=== PATIENT | female | born 1970 | race Caucasian/White ===

== ENCOUNTER 2020-02-23 11:38 | Emergency (ER) | payer OTHER ==
--- NOTE | 2020-02-23 12:12 | EDM.PDOC ---
ED HPI GENERAL MEDICAL PROBLEM - General Chief Complaint: Respiratory Problem Stated Complaint: FEVER-COVID Time Seen by Provider: 02/23/20 11:55 Source of Information: Reports: Patient, Old Records, RN History Limitations: Reports: No Limitations - History of Present Illness INITIAL COMMENTS - FREE TEXT/NARRATIVE: 49 yo female was referred by the local [facility] to the ER for possible hypoxia. She is about 10 days into her Covid dx and says she has been somewhat SOB for the past 4 days, does not feel worse today. Her pulse ox was reading low at home when she called the clinic and apparently stopped working completely after that. She was tested for PE via a chest CT scan yesterday which was negative. Her fevers have been mostly at night, none so far today. She had some diarrhea, this has resolved. No pHx of lung dz or tobacco use. 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: Reports: Other (see below) (is on steroids per clinic) - Related Data Allergies Allergy/AdvReac Type Severity Reaction Status Date / Time No Known Allergies Allergy Verified 02/22/20 15:50 Home Meds: Home Meds Budesonide [Pulmicort] 2 ml INH BID 02/23/20 [History] Past Medical History HEENT History: Reports: Impaired Vision Social & Family History - Tobacco Use Tobacco Use Status *Q: Never Tobacco User - Caffeine Use Caffeine Use: Reports: None - Recreational Drug Use Recreational Drug Use: No ED ROS GENERAL - Review of Systems Review Of Systems: See Below Constitutional: Reports: Fever ( at night), Malaise HEENT: Reports: No Symptoms Respiratory: Reports: Shortness of Breath (mild) Cardiovascular: Reports: Dyspnea on Exertion Endocrine: Reports: No Symptoms GI/Abdominal: Reports: Diarrhea (resolved) : Reports: No Symptoms Musculoskeletal: Reports: No Symptoms Skin: Reports: No Symptoms Neurological: Reports: No Symptoms ED EXAM, GENERAL - Physical Exam Exam: See Below Exam Limited By: No Limitations General Appearance: Alert, WD/WN, No Apparent Distress, Obese Eye Exam: Bilateral Eye: Normal Inspection Ears: Normal External Exam, Normal Canal, Hearing Grossly Normal Ear Exam: Bilateral Ear: Auricle Normal, Canal Normal Nose: Normal Inspection, No Blood Throat/Mouth: Normal Lips, Normal Oropharynx, Normal Voice, No Airway Compromise, Other (slightly dry oral mucosa) Head: Atraumatic, Normocephalic Neck: Normal Inspection Respiratory/Chest: No Respiratory Distress, Lungs Clear, Normal Breath Sounds, No Accessory Muscle Use Extremities: Normal Inspection, Normal Range of Motion, Non-Tender, No Pedal Edema Neurological: Alert, Oriented, CN II-XII Intact, Normal Cognition, No Motor/Sensory Deficits Psychiatric: Normal Affect, Normal Mood Skin Exam: Warm, Dry, Intact, Normal Color, No Rash Course - Vital Signs Last Recorded V/S: Last Vital Signs Temp 36.3 C 02/23/20 11:49 Pulse 92 02/23/20 11:49 Resp 18 02/23/20 11:49 BP 129/70 02/23/20 11:49 Pulse Ox 96 02/23/20 11:49 - Orders/Labs/Meds Labs: Laboratory Tests 02/23/20 Range/Units 12:25 Sodium 141 (135-145) mmol/L Potassium 3.4 L (3.5-5.3) mmol/L Chloride 104 (100-110) mmol/L Carbon Dioxide 27 (21-32) mmol/L BUN 19 H (7-18) mg/dL Creatinine 1.0 (0.55-1.02) mg/dL Est Cr Clr Drug Dosing 76.06 mL/min Estimated GFR (MDRD) 59 L (>60) BUN/Creatinine Ratio 19.0 (9-20) Glucose 105 (80-116) mg/dL Calcium 8.7 (8.6-10.2) mg/dL Departure - Departure Time of Disposition: 12:46 Disposition: Home, Self-Care 01 Condition: Fair Clinical Impression: COVID-19, Dehydration, mild - Discharge Information *PRESCRIPTION DRUG MONITORING PROGRAM REVIEWED*: No *COPY OF PRESCRIPTION DRUG MONITORING REPORT IN PATIENT JOSE L: No Referrals: PCP,None [Primary Care Provider] - Forms: ED Department Discharge Additional Instructions: Drink enough fluids so that your urine is light yellow in color. Eat more foods rich in potassium. Recheck as needed. Sepsis Event Note (ED) - Evaluation Sepsis Screening Result: Possible Sepsis Risk - Focused Exam Vital Signs: Vital Signs Temp Pulse Resp BP Pulse Ox 02/23/20 11:49 36.3 C 92 18 129/70 96
== END 2020-02-23 13:10 | disposition home or self-care (01) ==
LOC: FB.ED 11:38
DX: U07.1 COVID-19 (principal); E86.0 Dehydration
CPT/HCPCS: 36415; 80048; 99284

== ENCOUNTER 2021-03-10 16:59 | Emergency (ER) | payer OTHER ==
--- NOTE | 2021-03-10 17:27 | EDM.PDOC ---
ED HPI GENERAL MEDICAL PROBLEM - General Chief Complaint: General Time Seen by Provider: 03/10/21 17:15 Source of Information: Reports: Patient History Limitations: Reports: No Limitations - History of Present Illness INITIAL COMMENTS - FREE TEXT/NARRATIVE: Patient presented to the ED because of bleeding on the left leg. She had a varicose vein sclerotherapy done at [facility] today. Right Leg Pain Score (Numeric/FACES): 1 - Related Data Allergies Allergy/AdvReac Type Severity Reaction Status Date / Time No Known Allergies Allergy Verified 02/22/20 15:50 Home Meds: Home Meds Budesonide [Pulmicort] 2 ml INH BID 02/23/20 [History] Past Medical History HEENT History: Reports: Impaired Vision Social & Family History - Caffeine Use Caffeine Use: Reports: None ED ROS GENERAL - Review of Systems Review Of Systems: See Below Constitutional: Reports: No Symptoms HEENT: Reports: No Symptoms Respiratory: Reports: No Symptoms Cardiovascular: Reports: No Symptoms Endocrine: Reports: No Symptoms GI/Abdominal: Reports: No Symptoms : Reports: No Symptoms Musculoskeletal: Reports: No Symptoms Skin: Reports: Other (bleeding left leg) Neurological: Reports: No Symptoms Psychiatric: Reports: No Symptoms ED EXAM, GENERAL - Physical Exam Exam: See Below Exam Limited By: No Limitations General Appearance: Alert, No Apparent Distress Eye Exam: Bilateral Eye: PERRL Ears: Normal External Exam, Normal Canal Nose: Normal Inspection, Normal Mucosa, No Blood Throat/Mouth: Normal Inspection, Normal Lips, Normal Teeth Head: Atraumatic, Normocephalic Neck: Normal Inspection, Supple, Non-Tender, Full Range of Motion Respiratory/Chest: No Respiratory Distress, Lungs Clear, Normal Breath Sounds, No Accessory Muscle Use, Chest Non-Tender Cardiovascular: Normal Peripheral Pulses, Regular Rate, Rhythm, No Edema, No Gallop, No JVD, No Murmur, No Rub GI/Abdominal: Normal Bowel Sounds, Soft, Non-Tender, No Organomegaly, No Distention, No Abnormal Bruit Back Exam: Normal Inspection, Full Range of Motion Extremities: Normal Inspection, Normal Range of Motion, Non-Tender, No Pedal Edema, Normal Capillary Refill Neurological: Alert, Oriented, CN II-XII Intact, Normal Cognition, Normal Gait Psychiatric: Normal Affect, Normal Mood Skin Exam: Warm, Intact, Normal Color Course - Vital Signs Text/Narrative:: Pressure dressing was applied by ER doc Last Recorded V/S: Last Vital Signs Temp 36.5 C 03/10/21 17:10 Pulse 64 03/10/21 17:10 Resp 16 03/10/21 17:10 BP 119/51 L 03/10/21 17:10 Pulse Ox 98 03/10/21 17:10 Departure - Departure Time of Disposition: 18:00 Disposition: Home, Self-Care 01 Condition: Good Clinical Impression: Status post sclerotherapy of varicose veins, Bleeding - Discharge Information Instructions: Sclerotherapy, Care After, Bleeding Varicose Veins Referrals: Machelle Schwab BRAID CUTTER [Primary Care Provider] - Forms: ED Department Discharge Additional Instructions: Please read discharge instructions on sclerotherapy of varicose veins and bleeding Apply deep pressure for 30 minutes if it bleeds agai. If the bleeding will ot stop return to the ED. NO aspirin, ibuprofen, aleve for 1 week Follow up as needed Sepsis Event Note (ED) - Focused Exam Vital Signs: Vital Signs Temp Pulse Resp BP Pulse Ox 03/10/21 17:10 36.5 C 64 16 119/51 L 98
== END 2021-03-10 18:40 | disposition home or self-care (01) ==
LOC: FB.ED 16:59
DX: L76.22 Postprocedural hemorrhage of skin and subcutaneous tissue following other procedure (principal)
CPT/HCPCS: 99283